=== PATIENT | female | born 1960 | race African-American/Black ===

== ENCOUNTER 2020-04-24 09:12 | Emergency (ER) | payer MEDICAID ==
[2020-04-24 10:45] LABS: ABSOLUTE EOSINOPHILS # (AUTO) 0.1 10^3/uL (0.0-0.6); ABSOLUTE LYMPHOCYTES (AUTO) 0.9 10^3/uL (0.5-4.7); ABSOLUTE MONOCYTES (AUTO) 0.5 10^3/uL (0.1-1.4); ABSOLUTE NEUT (AUTO) 3.4 10^3/uL (1.7-8.2); BASOPHILS % (AUTO) 0.5 % (0-2); EOSINOPHILS % (AUTO) 1.8 % (0-6); HEMATOCRIT 35.1 % (36.0-47.0); HEMOGLOBIN 11.8 g/dL (12.0-15.5); MEAN CORPUSCULAR HEMOGLOBIN 30.5 pg (27.0-33.4); MEAN CORPUSCULAR HGB CONC 33.7 g/dL (32.0-36.0); MEAN CORPUSCULAR VOLUME 91 fl (80-97); MONOCYTES % (AUTO) 9.1 % (3-13); PLATELET COUNT 250 10^3/uL (150-450); RED BLOOD COUNT 3.87 10^6/uL (3.72-5.28); RED CELL DISTRIBUTION WIDTH 13.9 % (11.5-14.0); SEGMENTED NEUTROPHILS % (AUTO) 69.6 % (42-78); TOTAL CELLS COUNTED % (AUTO) 100 %; WHITE BLOOD COUNT 4.9 10^3/uL (4.0-10.5)
--- NOTE | 2020-04-24 11:01 | RADIOLOGY REPORT (SQ) ---
EXAM DESCRIPTION: CHEST SINGLE VIEW IMAGES COMPLETED DATE/TIME: 04/24/2020 10:44 am REASON FOR STUDY: sob COMPARISON: 12/09/2015 EXAM PARAMETERS: NUMBER OF VIEWS: One view. TECHNIQUE: Single frontal radiographic view of the chest acquired. RADIATION DOSE: NA LIMITATIONS: None. FINDINGS: LUNGS AND PLEURA: Chronic elevation right diaphragm. No opacities, masses or pneumothorax . No pleural effusion. MEDIASTINUM AND HILAR STRUCTURES: No masses. Contour normal. HEART AND VASCULAR STRUCTURES: Heart normal in size. Normal vasculature. BONES: No acute findings. HARDWARE: None in the chest. OTHER: No other significant finding. IMPRESSION: NO ACUTE RADIOGRAPHIC FINDING IN THE CHEST. TECHNICAL DOCUMENTATION: JOB ID: [id number] 2010 [employer]- All Rights Reserved Reading location - IP/workstation name: [email or web address]
[2020-04-24 11:02] LABS: ANION GAP 9 (5-19); BLOOD UREA NITROGEN 10 mg/dL (7-20); CARBON DIOXIDE 26 mmol/L (22-30); CHLORIDE 104 mmol/L (98-107); GLUCOSE 101 mg/dL (75-110); POTASSIUM 3.6 mmol/L (3.6-5.0)
[2020-04-24 11:14] LABS: NT PRO BNP 27 pg/mL (<125)
[2020-04-24 11:18] LABS: TROPONIN I < 0.012 ng/mL
--- NOTE | 2020-04-24 12:13 | ER Document Report ---
ED General - General Chief Complaint: Shortness Of Breath Stated Complaint: SHORTNESS OF BREATH Time Seen by Provider: 04/24/20 10:09 Primary Care Provider: HARLEY ORNELAS MD [Primary Care Provider] - Follow up as needed Notes: 59-year-old lady presents with shortness of breath onset this morning. No wheezing cough chest pain fever Covid exposures or history of smoking/COPD/CHF Has not been evaluated for sleep apnea and is overweight. She has an appointment with her primary today at 2:00 but decided to come to the ED first. She has not yet been tested for Covid TRAVEL OUTSIDE OF THE [place] IN LAST 30 DAYS: No - Related Data Allergies/Adverse Reactions: No Known Allergies Allergy (Unverified 12/05/15 15:00) Past Medical History - General Information source: Patient - Social History Smoking Status: Never Smoker Family History: None - Past Medical History Cardiac Medical History: Reports: Hx Hypercholesterolemia, Hx Hypertension Denies: Hx Heart Attack Pulmonary Medical History: Denies: Hx Asthma, Hx COPD, Hx Pneumonia Neurological Medical History: Denies: Hx Cerebrovascular Accident Endocrine Medical History: Denies: Hx Diabetes Mellitus Type 1, Hx Diabetes Mellitus Type 2 Past Surgical History: Reports: Hx Hysterectomy - Immunizations Hx Diphtheria, Pertussis, Tetanus Vaccination: No Review of Systems - Review of Systems Notes: REVIEW OF SYSTEMS GEN: Denies fever, chills, weight loss ENT: Denies sore throat, nasal discharge, ear pain EYES: Denies blurry vision, eye pain, discharge CV: Denies chest pain, palpitations, edema RESP: As of breath g GI: Denies abdominal pain, nausea, vomiting, diarrhea MSK: Denies joint pain/swelling, edema, SKIN: Denies rash, skin lesions LYMPH: Denies swollen glands/lymph nodes NEURO: Denies headache, focal weakness or numbness, dizziness PSYCH: Denies depression, suicidal or homicidal ideation PHYSICAL EXAMINATION General: No acute distress, well-nourished Head: Atraumatic, normocephalic ENT: Mouth normal, oropharynx moist, no exudates or tonsillar enlargement Eyes: Conjunctiva normal, pupils equal, lids normal Neck: No JVD, supple, no guarding CVS: Normal rate, regular rhythm, no murmurs Resp: No resp distress, equal and normal breath sounds bilaterally GI: Nondistended, soft, no tenderness to palpation, no rebound or guarding Ext: No deformities, face bilateral edema, normal range of motion in upper and lower ext Back: No CVA or midline TTP Skin: No rash, warm Lymphatic: No lymphadeopathy noted Neuro: Awake, alert. Face symmetric. GCS 15. Physical Exam - Vital signs Vitals: Temp Pulse Resp BP Pulse Ox 98.7 F 71 26 H 147/57 H 98 04/24/20 09:22 04/24/20 09:22 04/24/20 09:22 04/24/20 09:22 04/24/20 09:22 Course - Re-evaluation Re-evalutation: 04/24/20 12:23 59-year-old female presenting with sudden onset dyspnea. She has a normal respiratory rate on my exam despite being tachypneic earlier in her visit, is on the monitor during my exam is satting 100% with clear lungs Her x-ray EKG lab work-up including BNP and troponin all negative Her symptoms are not consistent with Covid and she wants to see her primary care. I told her that if she gets a Covid test today she will be considered a person investigation and will likely not be able to follow-up I think her main differential is sleep apnea or slowly developing/minor heart failure That said I am not going to start Lasix I will defer this to her primary and to order an echo but based on my evaluation I doubt PE decompensated heart failure or any other serious illness The patient has normal vitals and is stable to follow-up with her primary later today I have discussed with the patient there likely diagnosis, aftercare plan, follow-up plans and my usual and customary return precautions. They verbalized understanding of this. - Vital Signs Vital signs: Temp Pulse Resp BP Pulse Ox 98.7 F 71 22 H 179/67 H 100 04/24/20 09:22 04/24/20 09:22 04/24/20 11:00 04/24/20 09:57 04/24/20 11:00 - Laboratory Result Diagrams: 04/24/20 10:20 04/24/20 10:20 Laboratory results interpreted by me: 04/24/20 10:20 Hgb 11.8 L Hct 35.1 L - Diagnostic Test Radiology reviewed: Image reviewed, Reports reviewed - EKG Interpretation by Me EKG shows normal: Sinus rhythm Rate: Normal Rhythm: NSR - [place] metabolic No ST elevation or depression No fevers Discharge - Discharge Clinical Impression: Shortness of breath Condition: Good Disposition: HOME, SELF-CARE Additional Instructions: Based on EKG chest x-ray and lab testing we were unable to find a serious cause of your breathing issue. Your lung sounded good. You have a small amount of leg swelling. I recommend your primary care evaluate you for heart failure using an echocardiogram. No further emergency testing was indicated today. Referrals: HARLEY ORNELAS MD [Primary Care Provider] - Follow up as needed
[2020-04-24 12:34] VITALS: BP 150/98
--- NOTE | 2020-04-24 13:24 | EKG REPORT ---
SEVERITY:- BORDERLINE ECG - SINUS RHYTHM BORDERLINE LEFT AXIS DEVIATION NONSPECIFIC ST-T CHANGES- INFERIOR LEADS : Confirmed by: Eagle Barakat MD 24-Apr-2020 13:23:47
== END 2020-04-24 12:32 | disposition home or self-care (01) ==
LOC: ER 09:12
DX: R06.02 Shortness of breath (principal); E66.3 Overweight; I10 Essential (primary) hypertension
CPT/HCPCS: 36415; 71045; 80048; 83880; 84484; 85025; 93005; 93010; 99285

== ENCOUNTER 2020-05-07 18:29 | Emergency (ER) | payer MEDICAID ==
--- NOTE | 2020-05-07 19:15 | ER Document Report ---
ED Medical Screen (RME) - General Chief Complaint: Shortness Of Breath Stated Complaint: DIFFICULTY BREATHING Time Seen by Provider: 05/07/20 19:09 Primary Care Provider: HARELY ORNELAS MD [Primary Care Provider] - Follow up as needed Mode of Arrival: Ambulatory Information source: Patient Notes: 59-year-old female presented to ED for difficulty breathing for the last week. She states she has been coughing so much that she cannot sleep. She states the shortness of breath cough keeps her awake at night. She denies any fevers or chills. She denies any runny nose. She does have a history of high blood pressure cholesterol and asthma. She states the only surgery she has had is a hysterectomy. The patient was evaluated during the global Covid 19 pandemic, and that diagnosis was suspected/considered upon their initial presentation. Their evaluation, treatment and testing was consistent with current guidelines for patients who present with complaints or symptoms that may be related to Covid 19. I have greeted and performed a rapid initial assessment of this patient. A comprehensive ED assessment and evaluation of the patient, analysis of test results and completion of medical decision making process will be conducted by an additional ED providers. TRAVEL OUTSIDE OF THE [place] IN LAST 30 DAYS: No - Related Data Allergies/Adverse Reactions: No Known Allergies Allergy (Unverified 12/05/15 15:00) Past Medical History - Past Medical History Cardiac Medical History: Reports: Hx Hypercholesterolemia, Hx Hypertension Denies: Hx Heart Attack Pulmonary Medical History: Denies: Hx Asthma, Hx COPD, Hx Pneumonia Neurological Medical History: Denies: Hx Cerebrovascular Accident Endocrine Medical History: Denies: Hx Diabetes Mellitus Type 1, Hx Diabetes Mellitus Type 2 Past Surgical History: Reports: Hx Hysterectomy - Immunizations Hx Diphtheria, Pertussis, Tetanus Vaccination: No Physical Exam - Vital signs Vitals: Temp Pulse Resp BP Pulse Ox 98.5 F 74 20 138/67 H 98 05/07/20 18:45 05/07/20 18:45 05/07/20 18:45 05/07/20 18:45 05/07/20 18:45 Course - Vital Signs Vital signs: Temp Pulse Resp BP Pulse Ox 98.5 F 74 20 138/67 H 98 05/07/20 18:45 05/07/20 18:45 05/07/20 18:45 05/07/20 18:45 05/07/20 18:45 Doctor's Discharge - Discharge Referrals: HARLEY ORNELAS MD [Primary Care Provider] - Follow up as needed
--- NOTE | 2020-05-07 19:47 | RADIOLOGY REPORT (SQ) ---
EXAM DESCRIPTION: CHEST SINGLE VIEW IMAGES COMPLETED DATE/TIME: 05/07/2020 7:37 pm REASON FOR STUDY: cough congestion COMPARISON: 04/24/2020 EXAM PARAMETERS: NUMBER OF VIEWS: One view. TECHNIQUE: Single frontal radiographic view of the chest acquired. RADIATION DOSE: NA LIMITATIONS: None. FINDINGS: LUNGS AND PLEURA: No opacities, masses or pneumothorax. No pleural effusion. MEDIASTINUM AND HILAR STRUCTURES: No masses. Contour normal. HEART AND VASCULAR STRUCTURES: Heart normal in size. Normal vasculature. BONES: No acute findings. HARDWARE: None in the chest. OTHER: No other significant finding. IMPRESSION: NO ACUTE RADIOGRAPHIC FINDING IN THE CHEST. TECHNICAL DOCUMENTATION: JOB ID: [id number] 2010 [employer]- All Rights Reserved Reading location - IP/workstation name: [email or web address]
[2020-05-07 22:44] LABS: A TYPE INFLUENZA AG NEGATIVE (NEGATIVE); B INFLUENZA AG NEGATIVE (NEGATIVE)
[2020-05-07 22:49] VITALS: BP 126/66
[2020-05-07 23:04] LABS: ALBUMIN 4.4 g/dL (3.5-5.0); ALKALINE PHOSPHATASE 79 U/L (38-126); ANION GAP 13 (5-19); ASPARTATE AMINO TRANSFERASE 31 U/L (14-36); BILIRUBIN,TOTAL 0.9 mg/dL (0.2-1.3); BLOOD UREA NITROGEN 14 mg/dL (7-20); CALCIUM 9.3 mg/dL (8.4-10.2); CARBON DIOXIDE 32 mmol/L (22-30); CHLORIDE 95 mmol/L (98-107); GLUCOSE 105 mg/dL (75-110); POTASSIUM 3.7 mmol/L (3.6-5.0); TOTAL PROTEIN 7.7 g/dL (6.3-8.2)
--- OUTSIDE RECORDS SUMMARY | 2020-05-09 14:49 | XMS REPORT ---
:1960 [facility] [address] [place] [address] Care Team Providers Name Role Phone Unavailable Unavailable Unavailable Allergies, Adverse Reactions, Alerts This patient has no known allergies or adverse reactions. Medications This patient has no known medications. Problems This patient has no known problems. Procedures This patient has no known procedures. Results Test Description Test Time Test Comments Text Results Atomic Results Result Comments CBC WITH DIFFERENTIAL/PLATELET Test Item Value Reference Range Comments WBC (test code = 6690-2) 6 X10E3/UL 3.4-10.8 RBC (test code = 789-8) 3.79 X10E6/UL 3.77-5.28 HEMOGLOBIN (test code = 718-7) 11.3 G/DL 11.1-15.9 HEMATOCRIT (test code = 4544-3) 34.6 % 34.0-46.6 MCV (test code = 787-2) 91 FL 79-97 MCH (test code = 785-6) 29.8 PG 26.6-33.0 MCHC (test code = 786-4) 32.7 G/DL 31.5-35.7 RDW (test code = 788-0) 12.8 % 11.7-15.4 PLATELETS (test code = 777-3) 288 X10E3/UL 150-450 NEUTROPHILS (test code = 770-8) 72 % LYMPHS (test code = 736-9) 18 % MONOCYTES (test code = 5905-5) 8 % EOS (test code = 713-8) 2 % BASOS (test code = 706-2) 0 % NEUTROPHILS (ABSOLUTE) (test code = 751-8) 4.3 X10E3/UL 1.4-7 .0 LYMPHS (ABSOLUTE) (test code = 731-0) 1.1 X10E3/UL 0.7-3.1 MONOCYTES(ABSOLUTE) (test code = 742-7) .5 X10E3/UL 0.1-0.9 EOS (ABSOLUTE) (test code = 711-2) .1 X10E3/UL 0.0-0.4 BASO (ABSOLUTE) (test code = 704-7) 0 X10E3/UL 0.0-0.2 IMMATURE GRANULOCYTES (test code = 20356-1) 0 % IMMATURE GRANS (ABS) (test code = 82278-6) 0 X10E3/UL 0.0-0 .1 VITAMIN D, 25-HYDROXY Test Item Value Reference Range Comments VITAMIN D, 25-HYDROXY (test code = 81579-2) 7.9 NG/ML 30.0 -100.0 Social History This patient has no known social history. Vital Signs This patient has no known vital signs.
== END 2020-05-07 23:50 | disposition left against medical advice (07) ==
LOC: ER 18:29
DX: R06.02 Shortness of breath (principal); R05 Cough; I10 Essential (primary) hypertension; E78.00 Pure hypercholesterolemia, unspecified; J45.909 Unspecified asthma, uncomplicated; Z53.20 Procedure and treatment not carried out because of patient's decision for unspecified reasons
CPT/HCPCS: 36415; 71045; 80053; 87804; 99281

== ENCOUNTER 2020-05-13 12:01 | Emergency (ER) | payer MEDICAID ==
--- NOTE | 2020-05-13 13:12 | ER Document Report ---
ED Medical Screen (RME) - General Chief Complaint: Shortness Of Breath Stated Complaint: SHORTNESS OF BREATH Time Seen by Provider: 05/13/20 13:09 Primary Care Provider: HARLEY ORNELAS MD [Primary Care Provider] - Follow up as needed Mode of Arrival: Ambulatory Information source: Patient Notes: 59-year-old female presents to ED for cough. She states she does have body aches but she thinks she sits too much. States she has not been tested for Covid. She states she has been out in public but she does wear her mask. She states she does have fatigue as well. Patient is alert oriented respirations are regular nonlabored lungs are clear at this time. The patient was evaluated during the global Covid 19 pandemic, and that diagnosis was suspected/considered upon their initial presentation. Their evaluation, treatment and testing was consistent with current guidelines for patients who present with complaints or symptoms that may be related to Covid 19. I have greeted and performed a rapid initial assessment of this patient. A comprehensive ED assessment and evaluation of the patient, analysis of test results and completion of medical decision making process will be conducted by an additional ED providers. TRAVEL OUTSIDE OF THE [place] IN LAST 30 DAYS: No - Related Data Allergies/Adverse Reactions: No Known Allergies Allergy (Unverified 12/05/15 15:00) Past Medical History - Past Medical History Cardiac Medical History: Reports: Hx Hypercholesterolemia, Hx Hypertension Denies: Hx Heart Attack Pulmonary Medical History: Denies: Hx Asthma, Hx COPD, Hx Pneumonia Neurological Medical History: Denies: Hx Cerebrovascular Accident Endocrine Medical History: Denies: Hx Diabetes Mellitus Type 1, Hx Diabetes Mellitus Type 2 Past Surgical History: Reports: Hx Hysterectomy - Immunizations Hx Diphtheria, Pertussis, Tetanus Vaccination: No Physical Exam - Vital signs Vitals: Temp Pulse Resp BP Pulse Ox 97.8 F 77 20 148/89 H 100 05/13/20 12:20 05/13/20 12:20 05/13/20 12:20 05/13/20 12:20 05/13/20 12:20 Course - Vital Signs Vital signs: Temp Pulse Resp BP Pulse Ox 97.8 F 77 20 148/89 H 100 05/13/20 12:20 05/13/20 12:20 05/13/20 12:20 05/13/20 12:20 05/13/20 12:20 Doctor's Discharge - Discharge Referrals: HARLEY ORNELAS MD [Primary Care Provider] - Follow up as needed
--- NOTE | 2020-05-13 16:58 | ER Document Report ---
ED General - General Chief Complaint: Shortness Of Breath Stated Complaint: SHORTNESS OF BREATH Time Seen by Provider: 05/13/20 13:09 Primary Care Provider: MURPHY GUEVARA MD [ACTIVE STAFF] - Follow up in 1 week HARLEY ORNELAS MD [Primary Care Provider] - Follow up as needed Mode of Arrival: Ambulatory TRAVEL OUTSIDE OF THE [place] IN LAST 30 DAYS: No - HPI Notes: Patient is a 59 y/o female with a hx of HTN who presents with orthopnea and dyspnea on exertion for the past couple of weeks. Patient has been seen in the ED twice in the past few weeks for the same symptoms. She was seen on 04/24/2020 and advised to follow up with her PCP for new onset heart failure and have an ECHO done outpatient as EKG, CXR and BNP were all normal. She returned to the ED on 05/07/2020 for the same symptoms but eloped after RME. Patient states she continues to have orthopnea and must sleep with pillows as she cannot breath when lying flat. She states she was seen by her PCP and placed on lasix for leg swelling about one week ago. She denies cough, myalgias, chest pain, fever, nausea, vomiting, abdominal pain, and nasal congestion. - Related Data Allergies/Adverse Reactions: No Known Allergies Allergy (Unverified 12/05/15 15:00) Home Medications: high blood pressure medication, cream for skin Past Medical History - General Information source: Patient - Social History Smoking Status: Never Smoker Chew tobacco use (# tins/day): No Frequency of alcohol use: Rare Drug Abuse: None Family History: None - Past Medical History Cardiac Medical History: Reports: Hx Hypercholesterolemia, Hx Hypertension Denies: Hx Heart Attack Pulmonary Medical History: Denies: Hx Asthma, Hx COPD, Hx Pneumonia Neurological Medical History: Denies: Hx Cerebrovascular Accident Endocrine Medical History: Denies: Hx Diabetes Mellitus Type 1, Hx Diabetes Mellitus Type 2 Past Surgical History: Reports: Hx Hysterectomy - Immunizations Hx Diphtheria, Pertussis, Tetanus Vaccination: No Review of Systems - Review of Systems Constitutional: No symptoms reported EENT: No symptoms reported Cardiovascular: No symptoms reported Respiratory: See HPI Gastrointestinal: No symptoms reported Genitourinary: No symptoms reported Female Genitourinary: No symptoms reported Musculoskeletal: No symptoms reported Skin: No symptoms reported Hematologic/Lymphatic: No symptoms reported Neurological/Psychological: No symptoms reported Physical Exam - Vital signs Vitals: Temp Pulse Resp BP Pulse Ox 97.8 F 77 20 148/89 H 100 05/13/20 12:20 05/13/20 12:20 05/13/20 12:20 05/13/20 12:20 05/13/20 12:20 - Notes Notes: PHYSICAL EXAMINATION: VITALS: Vitals reviewed and within normal limits. GENERAL: Well-appearing, well-nourished and in no acute distress. HEAD: Atraumatic, normocephalic. EYES: Pupils equal, round, and reactive to light, extraocular movements intact, sclera anicteric, conjunctiva are normal. ENT: Nares patent. Moist mucous membranes. Oropharynx clear without exudates. NECK: Normal range of motion, supple without lymphadenopathy. LUNGS: Breath sounds clear to auscultation bilaterally and equal. No wheezes, rales, or rhonchi. HEART: Regular, rate, and rhythm without murmurs. ABDOMEN: Soft, nontender, normoactive bowel sounds. No guarding, no rebound. No masses appreciated. EXTREMITIES: Normal range of motion, no pitting or edema. No cyanosis. NEUROLOGICAL: No focal neurological deficits. Moves all extremities spontaneously and on command. PSYCH: Normal mood, normal affect. SKIN: Warm, Dry, normal turgor. Excoriations and scarring seen throughout arms and legs. Course - Re-evaluation Re-evalutation: Patient is a 59 y/o female who presents with orthopnea and dypnea on exertion for the past couple of weeks. Patient has been seen in the ED multiple times for the same symptoms in the past couple of weeks. She was advised to follow up with her PCP for an echo for further workup of possible heart failure. Patient saw her PCP and was started on lasixs last week. She denies having an echo done. Vital signs are stable and within normal limits. On physical exam, lungs are clear to auscultation bilaterally and there is no edema noted to her lower extremities. Patient was seen in E and told the provider she had cough and body aches which prompted the provider to order CBC, CMP, COVID and rapid flu swabs. However, when patient was evaluated by me she denied both cough and body aches and is only complaining of orthopnea and PABON. CBC and CMP are un remarkable and within normal limits. Chest XR negative. Rapid flu negative. COVID testing cancelled as I do not believe she is a PUI and she denies any symptoms. 05/13/20 17:30 I consulted my supervising physician, Dr. Thomas, concerning this patient. As her BP is stable, she is not tachycardic, her O2 sat is 100% on room air, CXR is negative with no cardiomyopathy and her physical exam is no rmal, he does not feel it is necessary to order further labwork or imaging at this time. He believes her symptoms are consistent with new onset, slow progressing heart failure. He called Dr. Guevara, stonemason helper, and he agreed to see the patient this week. Dr. Guevara said his office would call the patient to set up an appointment. I discussed everything with the patient and she agrees with the plan. Return precautions given. Patient will be discharged home. - Vital Signs Vital signs: Temp Pulse Resp BP Pulse Ox 98.4 F 69 16 138/77 H 96 05/13/20 17:20 05/13/20 17:20 05/13/20 17:20 05/13/20 17:20 05/13/20 17:20 - Laboratory Result Diagrams: 05/13/20 17:18 05/13/20 17:18 Discharge - Discharge Clinical Impression: Orthopnea, PABON (dyspnea on exertion) Condition: Stable Disposition: HOME, SELF-CARE Additional Instructions: Dr. Guevara's, stonemason helper (heart doctor), office will call you this week to schedule an appointment. Your symptoms are consistent with onset of heart failure and you need to be followed by a stonemason helper. Return if your symptoms worsen or if you begin to experience chest pain, fever, or persistent vomiting. Referrals: HARLEY ORNELAS MD [Primary Care Provider] - Follow up as needed MURPHY GUEVARA MD [ACTIVE STAFF] - Follow up in 1 week
[2020-05-13 17:21] VITALS: BP 138/77
[2020-05-13 17:32] LABS: A TYPE INFLUENZA AG NEGATIVE (NEGATIVE); B INFLUENZA AG NEGATIVE (NEGATIVE)
--- NOTE | 2020-05-13 17:42 | RADIOLOGY REPORT (SQ) ---
EXAM DESCRIPTION: CHEST SINGLE VIEW IMAGES COMPLETED DATE/TIME: 05/13/2020 2:20 pm REASON FOR STUDY: Short of breath fatigue body aches COMPARISON: 05/07/2020. EXAM PARAMETERS: NUMBER OF VIEWS: One view. TECHNIQUE: Single frontal radiographic view of the chest acquired. RADIATION DOSE: NA LIMITATIONS: None. FINDINGS: LUNGS AND PLEURA: No opacities, masses or pneumothorax. No pleural effusion. MEDIASTINUM AND HILAR STRUCTURES: No masses. Contour normal. HEART AND VASCULAR STRUCTURES: Heart normal in size. Normal vasculature. BONES: No acute findings. HARDWARE: None in the chest. OTHER: No other significant finding. IMPRESSION: NO ACUTE RADIOGRAPHIC FINDING IN THE CHEST. TECHNICAL DOCUMENTATION: JOB ID: [id number] 2010 [employer]- All Rights Reserved Reading location - IP/workstation name: [email or web address]
[2020-05-13 17:45] LABS: ABSOLUTE EOSINOPHILS # (AUTO) 0.2 10^3/uL (0.0-0.6); ABSOLUTE LYMPHOCYTES (AUTO) 1.5 10^3/uL (0.5-4.7); ABSOLUTE MONOCYTES (AUTO) 0.6 10^3/uL (0.1-1.4); ABSOLUTE NEUT (AUTO) 5.7 10^3/uL (1.7-8.2); BASOPHILS % (AUTO) 0.3 % (0-2); EOSINOPHILS % (AUTO) 2.2 % (0-6); HEMATOCRIT 38.2 % (36.0-47.0); HEMOGLOBIN 12.6 g/dL (12.0-15.5); LYMPHOCYTES % (AUTO) 18.4 % (13-45); MEAN CORPUSCULAR HEMOGLOBIN 30.1 pg (27.0-33.4); MEAN CORPUSCULAR HGB CONC 33.1 g/dL (32.0-36.0); MEAN CORPUSCULAR VOLUME 91 fl (80-97); MONOCYTES % (AUTO) 7.3 % (3-13); PLATELET COUNT 323 10^3/uL (150-450); RED BLOOD COUNT 4.19 10^6/uL (3.72-5.28); RED CELL DISTRIBUTION WIDTH 13.9 % (11.5-14.0); SEGMENTED NEUTROPHILS % (AUTO) 71.8 % (42-78); TOTAL CELLS COUNTED % (AUTO) 100 %
[2020-05-13 17:56] LABS: ALBUMIN 4.6 g/dL (3.5-5.0); ALKALINE PHOSPHATASE 83 U/L (38-126); ANION GAP 10 (5-19); ASPARTATE AMINO TRANSFERASE 37 U/L (14-36); BILIRUBIN,TOTAL 0.6 mg/dL (0.2-1.3); BLOOD UREA NITROGEN 15 mg/dL (7-20); CALCIUM 10.2 mg/dL (8.4-10.2); CARBON DIOXIDE 31 mmol/L (22-30); CHLORIDE 96 mmol/L (98-107); GLUCOSE 103 mg/dL (75-110); POTASSIUM 5.1 mmol/L (3.6-5.0)
== END 2020-05-13 17:56 | disposition home or self-care (01) ==
LOC: ER 12:01
DX: R06.01 Orthopnea (principal); R06.02 Shortness of breath; I10 Essential (primary) hypertension; E78.00 Pure hypercholesterolemia, unspecified; Z90.710 Acquired absence of both cervix and uterus
CPT/HCPCS: 36415; 71045; 80053; 85025; 87804; 99284